=== PATIENT | male | born 1985 | race Caucasian/White ===

== ENCOUNTER 2024-08-23 09:51 | Emergency (ER) | payer MEDICAID, SELFPAY ==
[2024-08-23 10:12] VITALS: BP 128/85; PULSE 87; RESP 18; TEMP 36.7; O2SAT 97; BMI 24.8
--- NOTE | 2024-08-23 10:43 | PD.EDRME ---
Rapid Medical Screening Exam RME Arrival date/time: 08/23/24 09:51 This is a 39-year-old male that comes into the emergency room with complaints of flank pain that started yesterday. Patient denies any urinary symptoms. Patient denies any trauma. Patient reports that he has not had kidney stones in the past. I have greeted and performed a focused initial assessment of this patient. Initial appropriate labs ordered at this time. A comprehensive ED assessment and evaluation of the patient and analysis of all test and completion of medical decision making process will be conducted by additional ED provider. Chief Complaint: Back Pain/Injury Time Seen by Provider: 08/23/24 09:55 Vital signs: Vital Signs Temperature 98.1 F 08/23/24 10:12 Pulse Rate 87 08/23/24 10:12 Respiratory Rate 18 08/23/24 10:12 Blood Pressure 128/85 H 08/23/24 10:12 Pulse Oximetry (%) 97 08/23/24 10:12 Oxygen Delivery Method Room Air 08/23/24 10:12
[2024-08-23] MEDS: ONDANSETRON ODT 4 MG TABRAP PO (10:48)
[2024-08-23] MEDS: KETOROLAC INJ 60 MG/2 ML VIAL IM (10:48)
[2024-08-23 11:54] LABS: Collection Type, Urine Voided; Squamous Epithelial Cell,Urine 0 /hpf (0-5)
[2024-08-23 12:06] LABS: Bilirubin,Urine Negative (Negative); Blood,Urine Negative (Negative); Clarity,Urine Clear (Clear/Hazy); Color,Urine Lt-Yellow (Lt Yel-Yel); Culture Indicated,Urine Not Indicated; Glucose, Urine Negative (Negative); Ketones,Urine Negative (Negative); Leukocyte Esterase,Urine Negative (Negative); Nitrite,Urine Negative (Negative); PH,Urine 6.5 (5.0-7.0); Protein,Urine Negative (Neg - Trace); RBC,Urine 2 /hpf (0-3); Specific Gravity,Urine 1.025 (1.001-1.035); Urobilinogen,Urine Negative mg/dL (0.0-1.0); WBC,Urine 1 /hpf (0-5)
[2024-08-23 12:06] LABS: Basophils # (Auto) 0.1 Thou/mm3 (0.0-0.2); Basophils % (Auto) 1 % (0-2.5); Eosinophils # (Auto) 0.3 Thou/mm3 (0.0-0.5); Eosinophils % (Auto) 3 % (0-10); Hematocrit 43.7 % (41.0-53.0); Hemoglobin 15.0 g/dL (13.5-16.0); Immature Granulocytes Auto 0.01 Thou/mm3 (0.00-0.00); Lymphocytes # (Auto) 2.3 Thou/mm3 (1.0-4.8); Lymphocytes % (Auto) 28 % (10-50); Mean Corpuscular HGB Conc 34.3 g/dl (31.0-37.0); Mean Corpuscular Hemoglobin 30.5 pg (25.0-35.0); Mean Corpuscular Volume 89 fL (80-100); Monocytes # (Auto) 0.9 Thou/mm3 (0.0-0.8); Monocytes % (Auto) 11 % (0-12); Neutrophils # (Auto) 4.6 Thou/mm3 (1.8-7.7); Neutrophils % (Auto) 57 % (37-80); Nucleated Red Blood Cell # 0.00 Thou/mm3 (0.00-0.00); Nucleated Red Blood Cell % 0 /100 WBC (0); Platelet Count 266 Thou/mm3 (140-440); RDW Standard Deviation 40.5 fL (35.1-43.9); Red Blood Count 4.92 Miln/mm3 (4.50-5.90); White Blood Count 8.1 Thou/mm3 (3.8-10.6)
[2024-08-23 12:30] LABS: Alanine Aminotransferase 21 U/L (10-49); Albumin, Serum 4.5 gm/dL (3.5-5.0); Albumin/Globulin Ratio 2.0 (1.2-2.2); Alkaline Phosphatase 80 U/L (46-116); Anion Gap 8 (7-16); Aspartate Amino Transferase 20 U/L (0-34); BUN/Creatinine Ratio 11 Ratio (12-20); Bilirubin,Total 0.5 mg/dL (0.3-1.2); Blood Urea Nitrogen 11 mg/dL (9-23); Calcium 9.0 mg/dL (8.3-10.6); Calcium (Corrected) 9.0 mg/dL (8.5-10.1); Carbon Dioxide 28.9 mMol/L (20.0-31.0); Chloride 104 mMol/L (98-107); Creatinine (Component) 1.0 mg/dL (0.6-1.3); Estimated Creatinine Clearance 106.7 mL/min (>60); Globulin 2.3 gm/dL (2.3-3.5); Glucose 89 mg/dL (74-106); Lipase 32 U/L (12-53); Osmolality,Calculated 279 (275-295); Potassium 4.1 mMol/L (3.4-5.1); Sodium 141 mMol/L (136-145); Total Protein 6.8 gm/dL (5.7-8.2); eGFR > 60 See Note
[2024-08-23 12:46] VITALS: BP 125/83; PULSE 79; RESP 16; TEMP 36.9; O2SAT 94
--- NOTE | 2024-08-23 13:17 | PD.EDBACK ---
ED Back Injury Pain RME/HPI General Chief Complaint: Back Pain/Injury Stated Complaint: RIGHT KIDNEY PAIN Time Seen by Provider: 08/23/24 09:55 Arrival date/time: 08/23/24 09:51 Limitations: no limitations RME / HPI RME / HPI Narrative: 08/23/24 09:51 This is a 39-year-old male that comes into the emergency room with complaints of flank pain that started yesterday. Patient denies any urinary symptoms. Patient denies any trauma. Patient reports that he has not had kidney stones in the past. I have greeted and performed a focused initial assessment of this patient. Initial appropriate labs ordered at this time. A comprehensive ED assessment and evaluation of the patient and analysis of all test and completion of medical decision making process will be conducted by additional ED provider. States the pain has been ongoing for about 3-4 weeks, off and on. Moving in certain ways induces the pain. Last 2 days has been significantly worse. Improved with medications given here. Related Data Previous Rx's ?Medication ?Instructions ?Recorded erythromycin 5 mg/gram (0.5 %) eye 0.5 inch ophthalmic (eye) QID #3.5 09/17/23 ointment grams ibuprofen 800 mg tablet (IBU) 800 mg PO Q8H #20 tabs 09/17/23 cyclobenzaprine 5 mg tablet 5 mg PO TID PRN muscle spasm #10 08/23/24 tabs ibuprofen 800 mg tablet 800 mg PO Q8H PRN pain #20 tabs 08/23/24 Allergies Allergy/AdvReac Type Severity Reaction Status Date / Time clindamycin Allergy Severe MADE SICK Verified 08/23/24 09:52 Review of Systems Review of Systems Systems Reviewed: All systems reviewed, normal except as documented ED Exam General Limitations: Present no limitations General appearance: Present alert Head Head exam: Present atraumatic Eye Eye exam: Present normal appearance, PERRL and EOMI ENT ENT exam: Present normal exam Neck Neck exam: Present normal inspection Chest Chest inspection: Present normal inspection Respiratory Respiratory exam: Present normal lung sounds bilaterally and respiratory distress; Absent wheezes Cardiovascular Cardiovascular exam: Present regular rate and normal rhythm Abdominal Exam Abdominal exam: Present soft and normal bowel sounds; Absent distention, tenderness, organomegaly, psoas sign, obturator sign or heel tap sign Extremities Exam Extremities exam: Present normal inspection and tenderness (No ML TTP. SLR test is negative. Patient has no CVA tenderness. Hasp pain, spasm and TTP along the R Seratous posterior muscle.) Back Exam Back 1 view image:  1. spasm Neurological Exam Neurological exam: Present alert, oriented X3, CN II-XII intact and normal gait Psychiatric Psychiatric exam: Present normal affect Skin Skin exam: Present warm, dry and intact Course Quality Measures none Orders Category Date Time Status CBC Stat Lab 08/23/24 11:27 Completed Comprehensive Metabolic Panel Stat Lab 08/23/24 11:27 Completed Lipase Stat Lab 08/23/24 11:27 Completed Urinalysis, C/S if Indicated Stat Lab 08/23/24 11:43 Completed Ketorolac Inj [Toradol Inj] Med 08/23/24 10:42 Discontinued 60 mg IM X1 ONE Ondansetron Odt [Zofran Odt] Med 08/23/24 10:42 Discontinued 4 mg PO X1 ONE Vital Signs Vital signs: Vital Signs Temperature 98.1 F 08/23/24 10:12 Pulse Rate 87 08/23/24 10:12 Respiratory Rate 18 08/23/24 10:12 Blood Pressure 128/85 H 08/23/24 10:12 Pulse Oximetry (%) 97 08/23/24 10:12 Oxygen Delivery Method Room Air 08/23/24 10:12 Back Pain / Injury Patient data External records reviewed:: [facility] previous records Clinical information provided by:: patient Social determinants that could affect healthcare access:: none Patient has the following chronic illnesses:: Not applicable How is presenting disease/condition affected by chronic disease/condition?: no chronic disease Evaluation data The following diagnostics were reviewed and interpreted by me:: lab results Lab and/or radiology exams considered but not ordered:: Labs unremarkable. Specifically, no hematuria Interpretation Summary: No further workup is indicated Medications / Prescriptions Medications or Prescriptions considered but not ordered:: Not applicable Medication administrations:: Medication Administration History Discontinued Medications Ketorolac Tromethamine (Ketorolac Inj 60 Mg/2 Ml Vial) 60 mg IM X1 ONE Stop: 08/23/24 10:43 Last Admin: 08/23/24 10:48 Dose: 60 mg Documented By: NISHANT Ondansetron HCl (Ondansetron Odt 4 Mg Tabrap) 4 mg PO X1 ONE; Protocol Stop: 08/23/24 10:43 Last Admin: 08/23/24 10:48 Dose: 4 mg Documented By: NISHANT As above, with improvement of symptoms Consultations Consultation(s) initiated? (list below): No Diagnosis Differential diagnosis back pain/injury: lumbar radiculopathy, sciatica, strain of lumbar region and renal colic Most likely diagnosis given after review of the tests above:: Spasm of right serratus posterior muscle Admission Indicated Admission indicated?: not indicated Admission Request Was there a request for admission?: No Disposition Plan Disposition Plan: Discharge Discharge Attestation Discharge Attestation: The patient and all family members were given an opportunity to ask questions and understood the discharge instructions. Discharge instructions specifically effects, indications for sooner follow up or return to the emergency department, and the expected course of current diagnosis. Patient condition: Stable Discharge Plan Plan Patient Disposition: HOME (Self Care) Patient condition on transfer: Stable Prescriptions/Referrals Prescriptions/Med Rec: New cyclobenzaprine 5 mg tablet 5 mg PO TID PRN (Reason: muscle spasm) Qty: 10 0RF ibuprofen 800 mg tablet 800 mg PO Q8H PRN (Reason: pain) Qty: 20 0RF No Action erythromycin 5 mg/gram (0.5 %) ointment 0.5 inch ophthalmic (eye) QID Qty: 3.5 0RF ibuprofen [IBU] 800 mg tablet 800 mg PO Q8H Qty: 20 0RF Referrals: Dorian Ngo MD [Primary Care Provider] - In 1 week Problem List Clinical Impression: Spasm of back muscles Patient/Caregiver Discharge Instructions Discharge Activity: activity as tolerated Education Materials: ED Muscle Spasm Print Language: Libyan Stand Alone Forms: Melissa Award Info., Patient Portal Info Letter
== END 2024-08-23 13:51 | disposition home or self-care (01) ==
PROVIDERS: Nurse Practitioner Family; Emergency Provider Emergency Medicine; PCP Family Medicine; Referring Provider Emergency Medicine
DX: M62.830 Muscle spasm of back (principal)
CPT/HCPCS: 36415; 80053; 81001; 83690; 85025; 96372; 99283; J1885; Q0162